=== PATIENT | female | born 1985 | race Caucasian/White ===

== ENCOUNTER 2017-03-23 06:09 | Inpatient (IN) ==
[2017-03-23] MEDS ORDERED: 0.9 % Sodium Chloride 1,000 ML IVC ONE (06:23)
[2017-03-23] MEDS ORDERED: Ondansetron 4 MG/2 ML VIAL IVP ONE (06:25)
--- NOTE | 2017-03-23 06:28 | Emergency Department Note ---
Disposition Clinical Impression: Hyperglycemia due to type 1 diabetes mellitus Nausea & vomiting Qualifiers: Vomiting type: unspecified Vomiting Intractability: unspecified Qualified Code( s): R11.2 - Nausea with vomiting, unspecified Disposition: Admitted As Inpatient Condition: Fair Referrals: NO,PCP [Non-Partnered Physician] - Forms: ED Satisfaction Letter Nausea/Vomiting/Diarrhea HPI - General Chief complaint: ED Nausea/Vomiting/Diarrhea Stated complaint: High GC/High [place]/N/V Time Seen by Provider: 03/23/17 06:15 Source: patient Mode of arrival: ambulatory Limitations: no limitations Nursing Notes Reviewed: Yes Vital Signs Reviewed: Yes - History of Present Illness HPI Narrative: 31-year-old female history of type I diabetes mellitus presents with elevated blood sugar. States last night her blood sugar was 286 she took her basal insulin as well as 2 additional rapid acting insulin. This morning at 430 she checked it again and continues to be high 250s. This concerned or so she came here for further evaluation. Said it has been several years since she has been in DKA. She has been nauseated over the past few days and has thrown up 4 times in the last 24 hours. Denies any recent fevers, cough or recent illness. Royal chest hurts from vomiting. She has some associated shortness of breath as well. Denies any urinary symptoms. Denies any missed doses of her insulin. Her blood sugars have been running between 50 and 200. Workup for possible DKA. Will give her normal saline bolus, Zofran for nausea, chest x- ray and EKG. POC here is 299. Pt Subjective Complaint: nausea, vomiting - Related Data Previous Rx's Medication Instructions Recorded Terbinafine HCl [Lamisil At] 1 applic TP BID #24 gm 12/28/16 cephALEXin [Keflex] 500 mg PO QID #28 capsule 12/28/16 Allergies Allergy/AdvReac Type Severity Reaction Status Date / Time No Known Allergies Allergy Verified 03/23/17 06:11 All systems ED: reviewed and negative except as stated. Review of Systems: As Per HPI Constitutional: Denies: fever, chills Cardiovascular: Reports: chest pain Respiratory: Reports: dyspnea. Denies: cough Gastrointestinal: Reports: nausea, vomiting. Denies: abdominal pain, diarrhea Genitourinary: Denies: urgency, dysuria Musculoskeletal: Denies: back pain, neck pain Integumentary: Denies: rash, abrasion Neurological: Denies: headache Past Medical History - Past Medical History Attestation: Yes The following information was validated with the patient. Source: patient Medical history: Reports: diabetes [employer]UNTER history: Reports: bilateral tubal ligation - Social History Smoking Status: Never smoker Smokeless Tobacco Status: No Alcohol use: Reports: none Drug use: Reports: none Physical Exam - General Limitations: no limitations General appearance: alert - Head Head exam: atraumatic, normocephalic, normal inspection - Eye Eye exam: Present: normal appearance, PERRL, EOMI - ENT ENT exam: normal exam, normal oropharynx, mucous membranes dry - Neck Neck exam: Present: normal inspection, full ROM, trachea midline - Chest Chest inspection: Present: normal inspection, symmetric chest wall rise - Respiratory Respiratory exam: Present: normal lung sounds bilaterally. Absent: respiratory distress, wheezes - Cardiovascular Cardiovascular exam: Present: regular rate, normal rhythm, normal heart sounds - Abdominal Exam Abdominal exam: Present: soft, Non-Tender, normal bowel sounds. Absent: tenderness, distention, guarding, rebound, rigidity - Extremities Exam Extremities exam: Present: normal inspection, full ROM, normal capillary refill. Absent: tenderness, pedal edema - Back Exam Back exam: Present: normal inspection, full ROM. Absent: tenderness, CVA tenderness (R), CVA tenderness (L) - Neurological Exam Neurological exam: Present: alert, oriented X3 Course Course Narrative: 31-year-old female presents with a concern for elevated blood sugar. She is a type I diabetic. Blood sugars have been running in the upper 200s. Sugar here is 299. Workup for possible DKA with CXR and EKG. Patient will be signout to daytime physician Dr. Dias. Vital Signs Temperature 97.8 F 03/23/17 06:11 Pulse Rate 96 03/23/17 06:11 Respiratory Rate 16 03/23/17 06:11 Blood Pressure 106/60 03/23/17 06:11 O2 Sat by Pulse Oximetry 100 03/23/17 06:11 Temperature 97.8 F 03/23/17 06:11 Pulse Rate 96 03/23/17 06:11 Respiratory Rate 16 03/23/17 06:11 Blood Pressure 106/60 03/23/17 06:11 O2 Sat by Pulse Oximetry 100 03/23/17 06:11 Oxygen Delivery Oxygen Delivery Room Air Nausea/Vomiting/Diarrhea - Medical Records Medical records reviewed: Yes I reviewed the patient's medical records. - Lab Data Lab results reviewed: Yes I reviewed the patient's lab results. Result diagrams: 03/23/17 06:37 03/23/17 06:37 Lab Results 03/23/17 03/23/17 03/23/17 Range/Units 06:25 06:37 06:37 WBC 15.3 H (4.3-11.1) K/mcL RBC 4.10 (3.82-4.97) M/mcL Hgb 12.6 (11.5-15.4) g/dL Hct 38.0 (35.3-44.9) % MCV 92.7 (83.0-100.0) fL MCH 30.7 (28.0-33.3) pg MCHC 33.2 (31.6-35.5) g/dL RDW 11.9 (11.5-14.5) % Plt Count 240 (140-400) K/mcL MPV 11.5 (9.4-12.4) fL Immature Gran % 0.4 (0-4) % Seg Neutrophils % 84.2 % Lymphocytes % 9.5 % Monocytes % 3.7 % Eosinophils % 1.6 % Basophils % 0.6 % Neutrophils # 12.9 H (1.6-8.9) K/mcL Lymphocytes # 1.5 (0.6-4.6) K/mcL Monocytes # 0.6 (0.0-1.3) K/mcL Eosinophils # 0.3 (0.0-0.6) K/mcL Basophils # 0.1 (0.0-0.2) K/mcL VBG pH (7.32-7.42) pH Units VBG pCO2 (41-51) mmHg VBG pO2 (25-40) mmHg VBG HCO3 (21-27) mEq/L Sodium 135 L (136-145) mEq/L Potassium 4.3 (3.5-4.5) mEq/L Chloride 103 (98-109) mEq/L Carbon Dioxide 15 L (19-29) mEq/L BUN 16 (7-20) mg/dL Creatinine 1.27 H (0.57-1.11) mg/dL Est GFR ( Amer) 60 (> 60) Est GFR (Non-Af Amer) 49 L (> 60) BUN/Creatinine Ratio 13 (6-26) Glucose 390 H (70-99) mg/dL POC Glucose 299 H (58-89) Calculated Osmolality 297 (280-300) Calcium 9.3 (8.6-10.8) mg/dL Phosphorus 2.7 (2.3-4.7) mg/dL Magnesium 1.6 (1.6-2.6) mg/dL Total Bilirubin 0.9 (0.2-1.2) mg/dL AST 14 (5-34) Units/L ALT 13 (0-55) Units/L Alkaline Phosphatase 46 (38-126) Units/L Serum Total Protein 7.2 (6.0-8.3) g/dL Albumin 4.0 (3.5-5.0) g/dL Globulin 3.2 (2.4-3.5) g/dL Albumin/Globulin Ratio 1.3 (1.1-2.2) Lipase < 10 (8-78) Units/L Beta-Hydroxybutyric Acd > 2.00 H (0.02-0.27) mmol/L Serum , Qual (Negative) 03/23/17 03/23/17 Range/Units 06:37 06:37 WBC (4.3-11.1) K/mcL RBC (3.82-4.97) M/mcL Hgb (11.5-15.4) g/dL Hct (35.3-44.9) % MCV (83.0-100.0) fL MCH (28.0-33.3) pg MCHC (31.6-35.5) g/dL RDW (11.5-14.5) % Plt Count (140-400) K/mcL MPV (9.4-12.4) fL Immature Gran % (0-4) % Seg Neutrophils % % Lymphocytes % % Monocytes % % Eosinophils % % Basophils % % Neutrophils # (1.6-8.9) K/mcL Lymphocytes # (0.6-4.6) K/mcL Monocytes # (0.0-1.3) K/mcL Eosinophils # (0.0-0.6) K/mcL Basophils # (0.0-0.2) K/mcL VBG pH 7.15 L* (7.32-7.42) pH Units VBG pCO2 40 L (41-51) mmHg VBG pO2 31 (25-40) mmHg VBG HCO3 13.9 L (21-27) mEq/L Sodium (136-145) mEq/L Potassium (3.5-4.5) mEq/L Chloride (98-109) mEq/L Carbon Dioxide (19-29) mEq/L BUN (7-20) mg/dL Creatinine (0.57-1.11) mg/dL Est GFR ( Amer) (> 60) Est GFR (Non-Af Amer) (> 60) BUN/Creatinine Ratio (6-26) Glucose (70-99) mg/dL POC Glucose (58-89) Calculated Osmolality (280-300) Calcium (8.6-10.8) mg/dL Phosphorus (2.3-4.7) mg/dL Magnesium (1.6-2.6) mg/dL Total Bilirubin (0.2-1.2) mg/dL AST (5-34) Units/L ALT (0-55) Units/L Alkaline Phosphatase (38-126) Units/L Serum Total Protein (6.0-8.3) g/dL Albumin (3.5-5.0) g/dL Globulin (2.4-3.5) g/dL Albumin/Globulin Ratio (1.1-2.2) Lipase (8-78) Units/L Beta-Hydroxybutyric Acd (0.02-0.27) mmol/L Serum , Qual Negative (Negative) S.B.A.R. - S.B.A.R. Situation: Demographics, MOA Background: Presenting Complaint, Relevant PMH, Meds, & Allergies Assessment: Vital Signs, Course and respsone to treatment, Exam Concerns, Patient/Family Expectation, Pertinant Lab Results, Outstanding Labs Recommendation: Barrier(s) to disposition, Recommendation based on pending studies, treatments, or consults S.B.A.R. Report Given to: Dr. Dias S.B.A.RGunner Repor Time: 07:00 Attestation Statement - Attestation Attestation: I, Milton Conway MD, personally evaluated this patient and discussed their management with the resident physician. I reviewed the resident's note and agree with the documented findings, medical decision making, and plan of care. 31-year-old female with history of insulin-dependent diabetes presents to the emergency department with a complaint of awakening about 4:30 this morning with repeated nausea and vomiting with some mild diffuse abdominal pain. She complains of shortness of breath. She has a history of recurrent DKA and states his symptoms feel the same. On examination patient is a well-developed thin female in no acute distress. She is alert and oriented 3. There is no cyanosis or diaphoresis. Breath sounds are clear and equal bilaterally. Heart regular rate and rhythm. Abdomen is soft and nontender with increased bowel sounds. Workup initiated. At shift change the patient is signed out to the oncoming dayshift physician, Dr. Dias.
[2017-03-23 06:44] LABS: Basophils # 0.1 K/mcL (0.0-0.2); Basophils % 0.6 %; Eosinophils # 0.3 K/mcL (0.0-0.6); Eosinophils % 1.6 %; Hemoglobin 12.6 g/dL (11.5-15.4); Immature Granulocytes % 0.4 % (0-4); Lymphocytes # 1.5 K/mcL (0.6-4.6); Lymphocytes % 9.5 %; Mean Corpuscular HGB Conc 33.2 g/dL (31.6-35.5); Mean Corpuscular Hemoglobin 30.7 pg (28.0-33.3); Mean Corpuscular Volume 92.7 fL (83.0-100.0); Mean Platelet Volume 11.5 fL (9.4-12.4); Monocytes # 0.6 K/mcL (0.0-1.3); Monocytes % 3.7 %; Neutrophils # 12.9 K/mcL (1.6-8.9); Platelet Count 240 K/mcL (140-400); Red Cell Distribution Width 11.9 % (11.5-14.5); Segmented Neutrophils % 84.2 %
[2017-03-23 06:52] LABS: Beta-Hydroxybutyric Acid > 2.00 mmol/L (0.02-0.27)
[2017-03-23 06:53] LABS: VBG HCO3 13.9 mEq/L (21-27)
[2017-03-23 06:54] LABS: VBG PH 7.15 pH Units (7.32-7.42)
[2017-03-23] MEDS ORDERED: *HR* Dextrose 50 % in Water (Syg) 50 ML SYRINGE IVP PRN ×3 (07:02→20:26)
[2017-03-23 07:05] LABS: Alanine Aminotransferase 13 Units/L (0-55); Albumin/Globulin Ratio 1.3 (1.1-2.2); Alkaline Phosphatase 46 Units/L (38-126); Aspartate Amino Transferase 14 Units/L (5-34); BUN/Creatinine Ratio 13 (6-26); Bilirubin,Total 0.9 mg/dL (0.2-1.2); Blood Urea Nitrogen 16 mg/dL (7-20); Calcium 9.3 mg/dL (8.6-10.8); Carbon Dioxide 15 mEq/L (19-29); Chloride 103 mEq/L (98-109); Globulin 3.2 g/dL (2.4-3.5); Glucose 390 mg/dL (70-99); Magnesium 1.6 mg/dL (1.6-2.6); Osmolality,Calculated 297 (280-300); Phosphorous 2.7 mg/dL (2.3-4.7); Potassium 4.3 mEq/L (3.5-4.5); Sodium 135 mEq/L (136-145); Total Protein 7.2 g/dL (6.0-8.3); eGFR For African Americans 60 (> 60); eGFR For Non-African Americans 49 (> 60)
[2017-03-23 07:06] LABS: Lipase < 10 Units/L (8-78)
--- NOTE | 2017-03-23 07:09 | Emergency Department Note ---
Disposition Clinical Impression: Hyperglycemia due to type 1 diabetes mellitus Nausea & vomiting Qualifiers: Vomiting type: unspecified Vomiting Intractability: unspecified Qualified Code( s): R11.2 - Nausea with vomiting, unspecified Disposition: Admitted As Inpatient Condition: Fair Referrals: NO,PCP [Non-Partnered Physician] - Forms: ED Satisfaction Letter Time of Disposition: 07:09 General Adult HPI - General Chief complaint: ED Nausea/Vomiting/Diarrhea Stated complaint: High glucose/High [place]/N/V Time Seen by Provider: 03/23/17 06:15 Source: patient Mode of arrival: ambulatory Limitations: no limitations - History of Present Illness Pain Scale: 8 - Related Data Previous Rx's Medication Instructions Recorded Terbinafine HCl [Lamisil At] 1 applic TP BID #24 gm 12/28/16 cephALEXin [Keflex] 500 mg PO QID #28 capsule 12/28/16 Allergies Allergy/AdvReac Type Severity Reaction Status Date / Time No Known Allergies Allergy Verified 03/23/17 06:11 Constitutional: Denies: fever, chills Cardiovascular: Reports: chest pain Respiratory: Reports: dyspnea. Denies: cough Gastrointestinal: Reports: nausea, vomiting. Denies: abdominal pain, diarrhea Genitourinary: Denies: urgency, dysuria Musculoskeletal: Denies: back pain, neck pain Integumentary: Denies: rash, abrasion Neurological: Denies: headache Past Medical History - Past Medical History Medical history: Reports: diabetes [employer]ARK [employer]ARD history: Reports: bilateral tubal ligation - Social History Smoking Status: Never smoker Smokeless Tobacco Status: No Alcohol use: Reports: none Drug use: Reports: none Physical Exam - General Limitations: no limitations General appearance: alert Course Vital Signs Temperature 97.8 F 03/23/17 06:11 Pulse Rate 96 03/23/17 06:11 Respiratory Rate 16 03/23/17 06:11 Blood Pressure 106/60 03/23/17 06:11 O2 Sat by Pulse Oximetry 100 03/23/17 06:11 Temperature 97.8 F 03/23/17 06:11 Pulse Rate 96 03/23/17 06:11 Respiratory Rate 16 03/23/17 06:11 Blood Pressure 106/60 03/23/17 06:11 O2 Sat by Pulse Oximetry 100 03/23/17 06:11 Oxygen Delivery Oxygen Delivery Room Air Medical Decision Making - Lab Data Lab results reviewed: Yes I reviewed the patient's lab results. Result diagrams: 03/23/17 06:37 03/23/17 06:37 Lab Results 03/23/17 03/23/17 03/23/17 Range/Units 06:25 06:37 06:37 WBC 15.3 H (4.3-11.1) K/mcL RBC 4.10 (3.82-4.97) M/mcL Hgb 12.6 (11.5-15.4) g/dL Hct 38.0 (35.3-44.9) % MCV 92.7 (83.0-100.0) fL MCH 30.7 (28.0-33.3) pg MCHC 33.2 (31.6-35.5) g/dL RDW 11.9 (11.5-14.5) % Plt Count 240 (140-400) K/mcL MPV 11.5 (9.4-12.4) fL Immature Gran % 0.4 (0-4) % Seg Neutrophils % 84.2 % Lymphocytes % 9.5 % Monocytes % 3.7 % Eosinophils % 1.6 % Basophils % 0.6 % Neutrophils # 12.9 H (1.6-8.9) K/mcL Lymphocytes # 1.5 (0.6-4.6) K/mcL Monocytes # 0.6 (0.0-1.3) K/mcL Eosinophils # 0.3 (0.0-0.6) K/mcL Basophils # 0.1 (0.0-0.2) K/mcL VBG pH (7.32-7.42) pH Units VBG pCO2 (41-51) mmHg VBG pO2 (25-40) mmHg VBG HCO3 (21-27) mEq/L Sodium 135 L (136-145) mEq/L Potassium 4.3 (3.5-4.5) mEq/L Chloride 103 (98-109) mEq/L Carbon Dioxide 15 L (19-29) mEq/L BUN 16 (7-20) mg/dL Creatinine 1.27 H (0.57-1.11) mg/dL Est GFR ( Amer) 60 (> 60) Est GFR (Non-Af Amer) 49 L (> 60) BUN/Creatinine Ratio 13 (6-26) Glucose 390 H (70-99) mg/dL POC Glucose 299 H (58-89) Calculated Osmolality 297 (280-300) Calcium 9.3 (8.6-10.8) mg/dL Phosphorus 2.7 (2.3-4.7) mg/dL Magnesium 1.6 (1.6-2.6) mg/dL Total Bilirubin 0.9 (0.2-1.2) mg/dL AST 14 (5-34) Units/L ALT 13 (0-55) Units/L Alkaline Phosphatase 46 (38-126) Units/L Serum Total Protein 7.2 (6.0-8.3) g/dL Albumin 4.0 (3.5-5.0) g/dL Globulin 3.2 (2.4-3.5) g/dL Albumin/Globulin Ratio 1.3 (1.1-2.2) Lipase < 10 (8-78) Units/L Beta-Hydroxybutyric Acd > 2.00 H (0.02-0.27) mmol/L Serum , Qual (Negative) 03/23/17 03/23/17 Range/Units 06:37 06:37 WBC (4.3-11.1) K/mcL RBC (3.82-4.97) M/mcL Hgb (11.5-15.4) g/dL Hct (35.3-44.9) % MCV (83.0-100.0) fL MCH (28.0-33.3) pg MCHC (31.6-35.5) g/dL RDW (11.5-14.5) % Plt Count (140-400) K/mcL MPV (9.4-12.4) fL Immature Gran % (0-4) % Seg Neutrophils % % Lymphocytes % % Monocytes % % Eosinophils % % Basophils % % Neutrophils # (1.6-8.9) K/mcL Lymphocytes # (0.6-4.6) K/mcL Monocytes # (0.0-1.3) K/mcL Eosinophils # (0.0-0.6) K/mcL Basophils # (0.0-0.2) K/mcL VBG pH 7.15 L* (7.32-7.42) pH Units VBG pCO2 40 L (41-51) mmHg VBG pO2 31 (25-40) mmHg VBG HCO3 13.9 L (21-27) mEq/L Sodium (136-145) mEq/L Potassium (3.5-4.5) mEq/L Chloride (98-109) mEq/L Carbon Dioxide (19-29) mEq/L BUN (7-20) mg/dL Creatinine (0.57-1.11) mg/dL Est GFR ( Amer) (> 60) Est GFR (Non-Af Amer) (> 60) BUN/Creatinine Ratio (6-26) Glucose (70-99) mg/dL POC Glucose (58-89) Calculated Osmolality (280-300) Calcium (8.6-10.8) mg/dL Phosphorus (2.3-4.7) mg/dL Magnesium (1.6-2.6) mg/dL Total Bilirubin (0.2-1.2) mg/dL AST (5-34) Units/L ALT (0-55) Units/L Alkaline Phosphatase (38-126) Units/L Serum Total Protein (6.0-8.3) g/dL Albumin (3.5-5.0) g/dL Globulin (2.4-3.5) g/dL Albumin/Globulin Ratio (1.1-2.2) Lipase (8-78) Units/L Beta-Hydroxybutyric Acd (0.02-0.27) mmol/L Serum , Qual Negative (Negative) Critical Care Time Critical Care Time: Yes Total Critical Care Time: 30 Attestation: patient with DKA requiring insulin drip and admission Attestation Statement - Attestation Attestation: Care assumed from Dr. Conway at 7 AM pending reassessment and planned admission. Patient is a known type I diabetic who presents hyperglycemic. Labs indicative of diabetic ketoacidosis. Patient to be admitted to the medicine service 07:18: The patient's serum glucose is 299. I have asked the nurse to place a second peripheral IV and hang D5 half normal saline at KVO rate for now. This is to prevent the patient from becoming hypoglycemic pending closure of her anion gap 07:30: Accepted for admission by
[2017-03-23] MEDS ORDERED: D5% in 0.45% NACL 1,000 ML IVC SCH (07:30)
[2017-03-23 07:57] LABS: Bilirubin,Urine Negative (Negative); Blood,Urine Negative (Negative); Clarity,Urine Clear (Clear); Color,Urine Yellow (Yellow); Glucose,Urine (UA) >=1000 mg/dL (Normal); Ketones,Urine >=160 mg/dL (Negative); Leukocyte Esterase,Urine Negative (Negative); Nitrite,Urine Negative (Negative); Protein,Urine Negative (Neg-Trace); Specific Gravity,Urine 1.024 (1.010-1.025); Urobilinogen,Urine Normal (Normal)
[2017-03-23] MEDS: Insulin Human Regular 100 UNIT in 0.9 % Sodium Chloride 100 ML IVC SCH (08:03)
[2017-03-23] MEDS ORDERED: D5% in 0.45% NACL w KCl 20 MEQ/1,000 ML MLS IVC PRN (08:04)
[2017-03-23] MEDS ORDERED: Acetaminophen 325 MG TABLET PO PRN (08:04)
[2017-03-23] MEDS ORDERED: *HR* Morphine 2 MG/ML SYRINGE IVP PRN (08:04)
[2017-03-23] MEDS ORDERED: Naloxone 0.4 MG/ML INJ IVP PRN (08:04)
[2017-03-23] MEDS ORDERED: Insulin Regular, Human 100 UNIT/ML IV PRN (08:04)
--- NOTE | 2017-03-23 08:16 | Internal Med History&Physical ---
Date of Encounter: 03/23/17 Time of Encounter: 08:13 Assessment and Plan (1) DKA (diabetic ketoacidoses) Current visit: Yes Status: Acute Unclear trigger, metabolic acidosis secondary to DKA, consider viral etiology as trigger Start insulin drip, start D5 with half-normal saline and 10 mEq of potassium at 150 mL per hour Monitor BMP frequently until anion gap closes/is below 12 or CO2 is above 18 May continue diet with clear liquids for now Morphine for pain, may repeat a UA as there is no clear trigger Protonix IV for GI prophylaxis and subcutaneous heparin for DVT prophylaxis. The patient is a full code. Admitted as inpatient, expected to stay more than 2 midnights. Time spent on this admission 40 minutes. Qualifiers: Diabetes mellitus type: type 1 Diabetes mellitus complication detail: without coma Qualified Code(s): E10.10 - Type 1 diabetes mellitus with ketoacidosis without coma (2) Diabetes type I Current visit: Yes Status: Acute May resume regular doses of insulin once DKA is resolved Qualifiers: Diabetes mellitus complication status: with ketoacidosis Diabetes mellitus complication detail: without coma Qualified Code(s): E10.10 - Type 1 diabetes mellitus with ketoacidosis without coma (3) Depression Current visit: Yes Status: Acute May continue Prozac Qualifiers: Depression Type: major depressive disorder Major depression recurrence: recurrent Active/Remission status: in remission of unspecified degree Qualified Code(s): F33.40 - Major depressive disorder, recurrent, in remission, unspecified (4) Insomnia Current visit: Yes Status: Acute Hold trazodone for now Qualifiers: Insomnia type: unspecified Qualified Code(s): G47.00 - Insomnia, unspecified (5) Nausea & vomiting Current visit: Yes Status: Acute Qualifiers: Vomiting type: unspecified Vomiting Intractability: unspecified Qualified Code(s): R11.2 - Nausea with vomiting, unspecified (6) Metabolic acidosis Current visit: Yes Status: Acute Acute metabolic acidosis secondary to DKA Internal Medicine - H&P: HPI Chief complaint: Nausea and vomiting Admitted From: Emergency Dept History of present illness: Ms. Collins is a 31 year old female with a past medical history of diabetes type 1 diagnosed at the age of 9, DKA in the past, depression and insomnia, who comes to the emergency room complaining of nausea and vomiting that started last night but got worse and 4:30 AM. She said that her glucose was very high at 286 yesterday and despite using her doses of insulin it did not come down below 250. Patient came to the ER complaining of severe nausea, some abdominal pain, vomited 4 times in the past 24 hours. Her heart rate was found to be 96 White blood cell count 15.3 venous pH is 7.15 with an anion gap of 17 CO2 is 15 sodium 137 hydroxybutyric acid is more than 2, glucose is 390. Denies any sick contacts, chest x-ray is unremarkable, no dysuria, UA does not show any infection. Unclear trigger of these episode as the patient apparently has been compliant with her insulin doses. The patient says she takes Toujeo/glargine insulin 15 units daily, half of 1 unit of rapid acting insulin if her glucose is above 150 or if she takes 10 g of carbohydrates apparently she is very sensitive to insulin Past Med Surg Social Fam HX - Past Medical History Medical history: diabetes (Type I diagnosed at the age of 9 years, history of DKA) Psychiatric history: depression (Insomnia) - Past Surgical History Surgical History: other (Tubal ligation, D&C 2, right breast removal) - Social History Smoking Status: Never smoker Smokeless Tobacco Status: No Alcohol use: none Drug use: none - Additional Family History Additional family history: Father with myocardial infarction 3, mother with hypothyroidism and hyperlipidemia Internal Medicine - H&P: Meds FLUoxetine HCl [Prozac] 40 mg PO QAM 03/23/17 [History] Fexofenadine HCl 60 mg PO DAILY 03/23/17 [History] Glucagon,Human Recombinant [Glucagon Emergency Kit] 1 mg IJ AD PRN 03/23/17 [ History] Insulin Glargine,Hum.rec.anlog [Toujeo Solostar] 15 units SQ QAM 03/23/17 [ History] Insulin Lispro Protamin/Lispro [Humalog Mix 50-50 Kwikpen] 0 unit SQ TID MDD PER SLIDING SCALE 03/23/17 [History] Omeprazole [PriLOSEC] 20 mg PO DAILY 03/23/17 [History] Trazodone HCl 100 mg PO HS 03/23/17 [History] Allergies No Known Allergies Allergy (Verified 03/23/17 06:11) All Systems PM: A 10-system review of systems was performed and is negative for pertinent findings except as documented above in the HPI. Review of systems: Continues to have nausea, mild abdominal discomfort, no diarrhea, no fevers, chest pain. Other systems out of the 10 reviewed were negative - Constitutional Vitals: Temp Pulse Resp BP Pulse Ox 97.8 F 109 16 102/50 98 03/23/17 06:11 03/23/17 07:39 03/23/17 07:39 03/23/17 07:39 03/23/17 07:39 General appearance: Present: A&O X 3, underweight - Head Head exam: Present: atraumatic, normocephalic - Eye Eye exam: Present: PERRL, conjuntiva pink, sclera anicteric Pupils: Present: PERRL - Neck Neck exam general surgery: Present: supple, trachea midline. Absent: lymphadenopathy - Respiratory Respiratory exam: Present: CTAB. Absent: accessory muscle use, rales, rhonchi, wheezes - Cardiovascular Cardiovascular exam: Present: RRR, +S1, +S2. Absent: diastolic murmur, gallop, rubs, systolic murmur - GI/Abdominal GI/Abdominal exam: Present: normal bowel sounds, soft, no peritoneal signs. Absent: distended, tenderness - Extremities Exam Extremities exam: Present: warm, radial pulses palpable and symetrical. Absent : calf tenderness, cyanotic, pedal edema - Neurological Exam Neurological exam: Present: CN II-XII intact, oriented X3, no focal deficits. Absent: pronater drift, facial droop, speech deficit - Skin Skin exam: Present: dry, intact Internal Med - H&P Results - Labs CBC & Chem 7: 03/23/17 06:37 03/23/17 06:37 Labs: Short CBC 03/23/17 Range/Units 06:37 WBC 15.3 H (4.3-11.1) K/mcL Hgb 12.6 (11.5-15.4) g/dL Hct 38.0 (35.3-44.9) % Plt Count 240 (140-400) K/mcL Neutrophils # 12.9 H (1.6-8.9) K/mcL BMP 03/23/17 06:37 Sodium 135 L Potassium 4.3 Chloride 103 Carbon Dioxide 15 L BUN 16 Creatinine 1.27 H Glucose 390 H Calcium 9.3 Liver Function 03/23/17 Range/Units 06:37 Total Bilirubin 0.9 (0.2-1.2) mg/dL AST 14 (5-34) Units/L ALT 13 (0-55) Units/L Alkaline Phosphatase 46 (38-126) Units/L Albumin 4.0 (3.5-5.0) g/dL Urine 03/23/17 Range/Units 07:30 Urine Color Yellow (Yellow) Urine Clarity Clear (Clear) Urine pH 5.0 (5.0-8.0) pH Units Ur Specific Stem 1.024 (1.010-1.025) Urine Protein Negative (Neg-Trace) mg/dL Urine Glucose (UA) >=1000 H (Normal) mg/dL - ABG Interpretation ABG results: 03/23/17 06:37 VBG pH 7.15 L* VBG pCO2 40 L VBG pO2 31 VBG HCO3 13.9 L - Impressions ITS Impressions Chest X-Ray 03/23/17 06:27 IMPRESSION: Negative portable chest. D/ / Stan Vicente MD / Stan Vicente MD Interpreting Provider: Stan Vicente MD
[2017-03-23] MEDS: D5% in 0.45% NACL w KCl 10 MEQ/1,000 ML MLS IVC SCH ×2 (09:30→18:02)
[2017-03-23 12:15] LABS: BUN/Creatinine Ratio 16 (6-26); Blood Urea Nitrogen 15 mg/dL (7-20); Carbon Dioxide 18 mEq/L (19-29); Chloride 111 mEq/L (98-109); Glucose 329 mg/dL (70-99); Osmolality,Calculated 292 (280-300); Sodium 134 mEq/L (136-145); eGFR For African Americans > 60 (> 60); eGFR For Non-African Americans > 60 (> 60)
[2017-03-23 12:48] LABS: Calcium 7.9 mg/dL (8.6-10.8)
[2017-03-23 17:40] LABS: BUN/Creatinine Ratio 14 (6-26); Blood Urea Nitrogen 12 mg/dL (7-20); Calcium 8.2 mg/dL (8.6-10.8); Carbon Dioxide 19 mEq/L (19-29); Chloride 112 mEq/L (98-109); Glucose 122 mg/dL (70-99); Osmolality,Calculated 285 (280-300); Potassium 4.2 mEq/L (3.5-4.5); Sodium 137 mEq/L (136-145); eGFR For African Americans > 60 (> 60); eGFR For Non-African Americans > 60 (> 60)
[2017-03-23] MEDS: *HR* Heparin 5,000 UNIT/ML VIAL SQ SCH (18:02)
[2017-03-23] MEDS: Ondansetron 4 MG/2 ML VIAL IVP PRN (19:48)
[2017-03-23] MEDS ORDERED: Dextrose Gel 15 GM PO PRN ×2 (20:26)
[2017-03-23] MEDS ORDERED: D5% in Water 1,000 ML IVC PRN (20:26)
[2017-03-23] MEDS: Pantoprazole 40 MG VIAL IVP SCH (20:29)
[2017-03-23] MEDS ORDERED: Insulin LISPRO 300 UNITS/3 ML VIAL SQ ONE (21:03)
[2017-03-23] MEDS: Insulin LISPRO 300 UNITS/3 ML VIAL SQ SCH ×2 (21:46→23:44)
[2017-03-23 22:44] LABS: BUN/Creatinine Ratio 12 (6-26); Blood Urea Nitrogen 12 mg/dL (7-20); Calcium 7.8 mg/dL (8.6-10.8); Carbon Dioxide 14 mEq/L (19-29); Chloride 108 mEq/L (98-109); Glucose 455 mg/dL (70-99); Osmolality,Calculated 294 (280-300); Potassium 4.4 mEq/L (3.5-4.5); Sodium 132 mEq/L (136-145); eGFR For African Americans > 60 (> 60); eGFR For Non-African Americans > 60 (> 60)
[2017-03-24] MEDS: D5% in 0.45% NACL w KCl 10 MEQ/1,000 ML MLS IVC SCH ×2 (01:29→08:50)
[2017-03-24] MEDS: Loratadine 10 MG TABLET PO SCH ×2 (02:13→08:07)
[2017-03-24] MEDS: Insulin LISPRO 300 UNITS/3 ML VIAL SQ SCH ×3 (03:53→16:42)
[2017-03-24] MEDS: *HR* Heparin 5,000 UNIT/ML VIAL SQ SCH ×2 (03:53→16:53)
[2017-03-24] MEDS: Insulin Human Regular 100 UNIT in 0.9 % Sodium Chloride 100 ML IVC SCH (05:54)
[2017-03-24 06:19] LABS: Hematocrit 29.1 % (35.3-44.9); Mean Corpuscular HGB Conc 33.7 g/dL (31.6-35.5); Mean Corpuscular Hemoglobin 30.5 pg (28.0-33.3); Mean Corpuscular Volume 90.7 fL (83.0-100.0); Mean Platelet Volume 11.8 fL (9.4-12.4); Platelet Count 189 K/mcL (140-400); Red Blood Count 3.21 M/mcL (3.82-4.97); Red Cell Distribution Width 12.1 % (11.5-14.5); Segmented Neutrophils % 61.8 %
[2017-03-24 06:20] LABS: Basophils # 0.1 K/mcL (0.0-0.2); Basophils % 0.5 %; Eosinophils # 0.4 K/mcL (0.0-0.6); Eosinophils % 4.2 %; Hemoglobin 9.8 g/dL (11.5-15.4); Immature Granulocytes % 0.4 % (0-4); Lymphocytes # 2.7 K/mcL (0.6-4.6); Lymphocytes % 26.2 %; Monocytes # 0.7 K/mcL (0.0-1.3); Monocytes % 6.9 %; Neutrophils # 6.4 K/mcL (1.6-8.9)
[2017-03-24 06:32] LABS: BUN/Creatinine Ratio 13 (6-26); Blood Urea Nitrogen 10 mg/dL (7-20); Calcium 7.6 mg/dL (8.6-10.8); Carbon Dioxide 19 mEq/L (19-29); Chloride 117 mEq/L (98-109); Glucose 102 mg/dL (70-99); Osmolality,Calculated 285 (280-300); Potassium 3.8 mEq/L (3.5-4.5); Sodium 138 mEq/L (136-145); eGFR For African Americans > 60 (> 60); eGFR For Non-African Americans > 60 (> 60)
[2017-03-24] MEDS: Pantoprazole 40 MG VIAL IVP SCH (08:07)
[2017-03-24] MEDS: BENZOCAINE/MENTHOL 1 LOZENGE (BAG OF 6) MM PRN (08:17)
[2017-03-24] MEDS: Insulin DETEMIR 100 UNIT/ML X5UNITS SQ SCH (08:18)
[2017-03-24] MEDS: Ondansetron 4 MG/2 ML VIAL IVP PRN ×2 (08:22→17:07)
[2017-03-24] MEDS: 0.45 % Sodium Chloride w/KCl 20 MEQ/1,000 ML MLS IVC SCH ×2 (12:30→20:16)
--- NOTE | 2017-03-24 14:40 | Internal Med Progress Note ---
Date of Encounter: 03/24/17 Time of Encounter: 10:00 - Assessment and plan (1) DVT prophylaxis Current Visit: Yes Status: Acute Assessment and plan: Heparin subcutaneously (2) DKA (diabetic ketoacidoses) Current Visit: Yes Status: Acute Assessment and plan: Have been resolved after treatment. AG 2 now. Diet has been resumed. Continue basal and a sliding significantly. Closely monitor blood sugar level. Qualifiers: Diabetes mellitus type: type 1 Diabetes mellitus complication detail: without coma Qualified Code(s): E10.10 - Type 1 diabetes mellitus with ketoacidosis without coma (3) Diabetes type I Current Visit: Yes Status: Acute Assessment and plan: Treatment as above Qualifiers: Diabetes mellitus complication status: with ketoacidosis Diabetes mellitus complication detail: without coma Qualified Code(s): E10.10 - Type 1 diabetes mellitus with ketoacidosis without coma (4) Depression Current Visit: Yes Status: Acute Assessment and plan: Continue home medication Qualifiers: Depression Type: major depressive disorder Major depression recurrence: recurrent Active/Remission status: in remission of unspecified degree Qualified Code(s): F33.40 - Major depressive disorder, recurrent, in remission, unspecified - Time Spent With Patient 25 - 35 minutes - Subjective Interval history: Patient is a 31-year-old female admitted for DKA. I saw and examined the patient today. She feels much better, denies nausea, vomiting, abdominal pain. AG closed. Diet resumed. Diabetes education has been done bedside. - Constitutional Vitals: Temp Pulse Resp BP Pulse Ox 98.8 F 82 18 113/73 98 03/24/17 11:49 03/24/17 11:49 03/24/17 11:49 03/24/17 11:49 03/24/17 11:49 General appearance: Present: A&O X 3, underweight - Head Head exam: Present: atraumatic, normocephalic - Eye Eye exam: Present: PERRL, conjuntiva pink, sclera anicteric Pupils: Present: PERRL - Neck Neck exam general surgery: Present: supple, trachea midline. Absent: lymphadenopathy - Respiratory Respiratory exam: Present: CTAB. Absent: accessory muscle use, rales, rhonchi, wheezes - Cardiovascular Cardiovascular exam: Present: RRR, +S1, +S2. Absent: diastolic murmur, gallop, rubs, systolic murmur - GI/Abdominal GI/Abdominal exam: Present: normal bowel sounds, soft, no peritoneal signs. Absent: distended, tenderness - Extremities Exam Extremities exam: Present: warm, radial pulses palpable and symetrical. Absent : calf tenderness, cyanotic, pedal edema - Neurological Exam Neurological exam: Present: CN II-XII intact, oriented X3, no focal deficits. Absent: pronater drift, facial droop, speech deficit - Skin Skin exam: Present: dry, intact Internal Medicine: Result - Labs CBC & Chem 7: 03/24/17 05:28 03/24/17 05:28 Labs: Short CBC 03/24/17 Range/Units 05:28 WBC 10.4 (4.3-11.1) K/mcL Hgb 9.8 L D (11.5-15.4) g/dL Hct 29.1 L (35.3-44.9) % Plt Count 189 (140-400) K/mcL Neutrophils # 6.4 (1.6-8.9) K/mcL BMP 03/23/17 03/23/17 03/24/17 17:02 22:01 05:28 Sodium 137 132 L 138 Potassium 4.2 4.4 3.8 Chloride 112 H 108 117 H Carbon Dioxide 19 14 L 19 BUN 12 12 10 Creatinine 0.85 1.04 0.80 Glucose 122 H 455 H 102 H Calcium 8.2 L 7.8 L 7.6 L Consult Discharge Plan - Plan Referrals: Joaquin Turcios DO [Resident] - 03/31/17 10:20 am
[2017-03-24] MEDS: FLUoxetine 20 MG CAPSULE PO SCH (16:52)
[2017-03-24] MEDS ORDERED: traZODone 50 MG TABLET PO SCH (21:00)
[2017-03-24] MEDS ORDERED: Insulin LISPRO 300 UNITS/3 ML VIAL SQ SCH (21:00)
[2017-03-25] MEDS: Ondansetron 4 MG/2 ML VIAL IVP PRN (00:36)
[2017-03-25] MEDS: 0.45 % Sodium Chloride w/KCl 20 MEQ/1,000 ML MLS IVC SCH (04:28)
[2017-03-25] MEDS: *HR* Heparin 5,000 UNIT/ML VIAL SQ SCH (04:29)
[2017-03-25 04:34] LABS: Basophils # 0.1 K/mcL (0.0-0.2); Basophils % 0.7 %; Eosinophils # 0.4 K/mcL (0.0-0.6); Eosinophils % 5.5 %; Hematocrit 30.7 % (35.3-44.9); Hemoglobin 10.3 g/dL (11.5-15.4); Immature Granulocytes % 0.1 % (0-4); Lymphocytes # 2.1 K/mcL (0.6-4.6); Lymphocytes % 29.1 %; Mean Corpuscular HGB Conc 33.6 g/dL (31.6-35.5); Mean Corpuscular Volume 89.5 fL (83.0-100.0); Mean Platelet Volume 12.2 fL (9.4-12.4); Monocytes # 0.5 K/mcL (0.0-1.3); Monocytes % 7.6 %; Platelet Count 174 K/mcL (140-400); Red Blood Count 3.43 M/mcL (3.82-4.97); Red Cell Distribution Width 12.4 % (11.5-14.5)
[2017-03-25] MEDS: Insulin LISPRO 300 UNITS/3 ML VIAL SQ SCH (04:36)
[2017-03-25 04:50] LABS: BUN/Creatinine Ratio 8 (6-26); Blood Urea Nitrogen 6 mg/dL (7-20); Calcium 8.2 mg/dL (8.6-10.8); Carbon Dioxide 21 mEq/L (19-29); Chloride 112 mEq/L (98-109); Glucose 214 mg/dL (70-99); Osmolality,Calculated 288 (280-300); Potassium 4.5 mEq/L (3.5-4.5); Sodium 137 mEq/L (136-145); eGFR For African Americans > 60 (> 60); eGFR For Non-African Americans > 60 (> 60)
[2017-03-25] MEDS: Insulin DETEMIR 100 UNIT/ML X5UNITS SQ SCH (08:04)
[2017-03-25] MEDS: Loratadine 10 MG TABLET PO SCH (08:04)
[2017-03-25] MEDS: FLUoxetine 20 MG CAPSULE PO SCH (08:04)
[2017-03-25] MEDS: BENZOCAINE/MENTHOL 1 LOZENGE (BAG OF 6) MM PRN (08:09)
[2017-03-25] MEDS ORDERED: *HR* Promethazine 25 MG/ML VIAL IM PRN (08:57)
--- NOTE | 2017-03-25 10:25 | Discharge Summary ---
Date of Encounter: 03/25/17 Time of Encounter: 10:00 - Discharge Diagnosis (1) DVT prophylaxis Priority: Secondary Status: Acute (2) DKA (diabetic ketoacidoses) Priority: Primary Status: Acute Qualifiers: Diabetes mellitus type: type 1 Diabetes mellitus complication detail: without coma Qualified Code(s): E10.10 - Type 1 diabetes mellitus with ketoacidosis without coma (3) Diabetes type I Priority: Primary Status: Acute Qualifiers: Diabetes mellitus complication status: with ketoacidosis Diabetes mellitus complication detail: without coma Qualified Code(s): E10.10 - Type 1 diabetes mellitus with ketoacidosis without coma (4) Depression Priority: Secondary Status: Acute Qualifiers: Depression Type: major depressive disorder Major depression recurrence: recurrent Active/Remission status: in remission of unspecified degree Qualified Code(s): F33.40 - Major depressive disorder, recurrent, in remission, unspecified - Discharge Medications Home Medications: FLUoxetine HCl [Prozac] 40 mg PO QAM 03/23/17 [History] Fexofenadine HCl 60 mg PO DAILY 03/23/17 [History] Glucagon,Human Recombinant [Glucagon Emergency Kit] 1 mg IJ AD PRN 03/23/17 [ History] Insulin Glargine,Hum.rec.anlog [Toujeo Solostar] 15 units SQ QAM 03/23/17 [ History] Insulin Lispro Protamin/Lispro [Humalog Mix 50-50 Kwikpen] 0 unit SQ TID MDD PER SLIDING SCALE 03/23/17 [History] Omeprazole [PriLOSEC] 20 mg PO DAILY 03/23/17 [History] Trazodone HCl 100 mg PO HS 03/23/17 [History] Allergies/Adverse Reactions: Allergies No Known Allergies Allergy (Verified 03/23/17 06:11) Date of admission: 03/23/17 14:35 Primary care physician: Ava Levy DO Consults: 03/24/17 07:34 Consult to Shoe Handler [CONS] Routine Comment: Reason for Consult: DKA, SKIPS MEALS, NEEDS INSTRUCTIONS ON WHEN TO TAKE INSULIN Discharging clinician: Kerry Nash Anticipated date of discharge: 03/25/17 - Patient Status Disposition: Home, Self-Care Condition: Fair Functional capacity at discharge: independent ambulation Overall status at discharge: patient is back to baseline - Discharge Instructions Instructions: Diabetes Mellitus Type 2 in Adults (DC) Follow Up With: Joaquin Turcios DO [Resident] - 03/31/17 10:20 am - Diet and Activity Activity: increase activity as tolerated Diet: diabetic diet Interval History: Ms. Collins is a 31 year old female with a past medical history of diabetes type 1 diagnosed at the age of 9, DKA in the past, depression and insomnia, who comes to the emergency room complaining of nausea and vomiting that started last night but got worse and 4:30 AM. She said that her glucose was very high at 286 yesterday and despite using her doses of insulin it did not come down below 250. Patient came to the ER complaining of severe nausea, some abdominal pain, vomited 4 times in the past 24 hours. Her heart rate was found to be 96 White blood cell count 15.3 venous pH is 7.15 with an anion gap of 17 CO2 is 15 sodium 137 hydroxybutyric acid is more than 2, glucose is 390. Denies any sick contacts, chest x-ray is unremarkable, no dysuria, UA does not show any infection. Unclear trigger of these episode as the patient apparently has been compliant with her insulin doses. Hospital course: Ms. Collins is a 31 year old female admitted for DKA. She was placed on close monitoring, insulin drip, IV fluid, potassium supplement. After treatment, her AG closed, diet and subcutaneous insulin resumed. Patient is stable. Diabetes education has been done bedside. Patient will discharge home and resume her routine insulin regimen. She was seen and examined. Patient feels fine. Mild nausea no vomiting, patient said she has chronic nausea due to gastroparesis. Vitals are stable. Patient was discharged home and follow-up with PCP as outpatient. - Time Spent with Patient Total time spent providing and/or coordinating discharge services: 25 minutes Less than 30 minutes - Constitutional Vitals: Temp Pulse Resp BP Pulse Ox 98.4 F 86 16 119/63 97 03/25/17 07:00 03/25/17 09:43 03/25/17 09:43 03/25/17 07:00 03/25/17 09:43 General appearance: Present: A&O X 3, answers questions appropriately - Head Head exam: Present: atraumatic, normocephalic - Eye Eye exam: Present: PERRL, conjuntiva pink, sclera anicteric Pupils: Present: PERRL - Neck Neck exam general surgery: Present: supple, trachea midline. Absent: lymphadenopathy - Respiratory Respiratory exam: Present: CTAB. Absent: accessory muscle use, rales, rhonchi, wheezes - Cardiovascular Cardiovascular exam: Present: RRR, +S1, +S2. Absent: diastolic murmur, gallop, rubs, systolic murmur - GI/Abdominal GI/Abdominal exam: Present: normal bowel sounds, soft, no peritoneal signs. Absent: distended, tenderness - Extremities Exam Extremities exam: Present: warm, radial pulses palpable and symetrical. Absent : calf tenderness, cyanotic, pedal edema - Neurological Exam Neurological exam: Present: CN II-XII intact, oriented X3, no focal deficits. Absent: pronater drift, facial droop, speech deficit - Skin Skin exam: Present: dry, intact
[2017-03-25 11:29] VITALS: BP 107/71
== END 2017-03-25 11:56 | disposition home or self-care (01) | DRG 420 ==
LOC: EMEROO 06:09 → 2NNU 14:35
PROVIDERS: ADMIT Internal Medicine; ATTEND Internal Medicine